=== PATIENT | female | born 1960 | race Caucasian/White ===

== ENCOUNTER 2018-05-17 05:48 | Inpatient (IN) | payer BC, MEDICARE ==
[2018-05-10 16:06] LABS: BASOPHILS % (AUTO) 0.5 % (0-1); EOSINOPHILS # (AUTO) 0.2 X10'3 (0-0.9); EOSINOPHILS % (AUTO) 1.7 % (0-6); LYMPHOCYTES # (AUTO) 3.6 X10'3 (1.1-4.8); LYMPHOCYTES % (AUTO) 37.4 % (21-51); MEAN CORPUSCULAR HEMOGLOBIN 30.1 PG (27.0-31.0); MEAN CORPUSCULAR HGB CONC 33.8 % (33.0-36.5); MEAN CORPUSCULAR VOLUME 89.1 FL (78-98); MEAN PLATELET VOLUME 8.2 FL (7.4-10.4); MONOCYTES # (AUTO) 0.6 X10'3 (0-0.9); MONOCYTES % (AUTO) 6.1 % (2-12); NEUTROPHILS # (AUTO) 5.2 X10'3 (1.8-7.7); NEUTROPHILS % (AUTO) 54.3 % (42-75); PRE OP HEMATOCRIT 40.3 % (35.0-45.0); PRE OP HEMOGLOBIN 13.6 g/dL (12.0-16.0); PRE OP PLATELET COUNT 267 X10'3 (140-440); RED BLOOD COUNT 4.52 X10'6 (4.20-5.60); RED CELL DISTRIBUTION WIDTH 13.8 % (11.5-14.5)
[2018-05-10 16:06] LABS: CLARITY,URINE CLEAR (Clear); COLOR,URINE YELLOW (Yellow); GLUCOSE, URINE NEGATIVE (Neg); KETONES,URINE TRACE mg/dl (Neg); LEUKOCYTE ESTERASE ,URINE NEGATIVE (Neg); NITRITES, URINE NEGATIVE (Neg); OCCULT BLOOD,URINE NEGATIVE (Neg); PH,URINE 5.5 (4.8-8.0); PROTEIN,URINE NEGATIVE (Neg); UROBILINOGEN,URINE 0.2 E.U/dL (0.2-1.0)
[2018-05-10 16:11] LABS: UA COLLECTION TYPE CLN CATCH MIDSTREAM
[2018-05-10 16:14] LABS: PRE OP PROTIME 10.2 SECONDS (9.0-12.0)
[2018-05-10 16:15] LABS: HEMOGLOBIN A1C 6.2 % (4.5-6.2)
[2018-05-10 16:20] LABS: ALBUMIN/GLOBULIN RATIO 1.1 (1.1-1.5); ALKALINE PHOSPHATASE 126 IU/L (46-116); BLOOD UREA NITROGEN 20 MG/DL (7-18); BUN/CREATININE RATIO 14.8 (6.6-38.0); CALCIUM 9.6 MG/DL (8.5-10.1); CHLORIDE 102 MMOL/L (99-107); CREATININE 1.35 MG/DL (0.40-0.90); PRE OP ALT 37 U/L (30-65); PRE OP ANION GAP 13 (8-16); PRE OP AST 22 U/L (10-37); PRE OP BILIRUB, TOTAL 0.3 MG/DL (0.0-1.0); PRE OP GLUCOSE 136 MG/DL (70-104); PRE OP POTASSIUM 4.1 MMOL/L (3.4-5.1); PRE OP SODIUM 138 MMOL/L (135-145); TOTAL CARBON DIOXIDE 23.2 MMOL/L (24-32); TOTAL PROTEIN 7.8 G/DL (6.4-8.2); eGFR 40 ML/MIN
[~2018-05-17] VITALS: Ht 162.6 cm; Wt 108.3 kg
[2018-05-17] VITALS (24 sets, daily range): BP systolic 96–134; BP diastolic 49–82
[~2018-05-17 05:48] MED LIST: ALPR-624 PO; BUPR300T54 PO; ERGO500014 PO; ESZO3TAB32 PO; FURO-150 PO; GLIM4TAB79 PO; HYDR-565 PO; LISI2.5T89 PO; METF500T PO; NAPR-56 PO; SITA100T11 PO; ZOL50T PO; [UNRECOGNIZED DRUG - CODE] PO; acetaminophen 325mg tablet PO ONE; celeCOXIB 100mg capsule PO ONE; clindamycin-Cleocin 900mg/D5W 50 ML IV ONE; famotidine 20mg tablet PO ONE; gabapentin 300mg capsule PO ONE; metoclopramide 5 mg/ml inj IV ONE; oxyCODONE SR 10mg (sust. release) tab PO ONE; ringers solution, lacted 1,000 ML IV SCH; vancomycin inj 1,500 MG in normal saline 300ml IV soln IV ONE
[2018-05-17] MEDS ORDERED: epiNEPHrine 1 mg/ml inj ONE (07:59)
[2018-05-17] MEDS ORDERED: vancomycin 1,000mg inj ONE (07:59)
[2018-05-17] MEDS ORDERED: ketorolac trometh. 30mg/ml inj. ONE (07:59)
[2018-05-17] MEDS ORDERED: cloNIDine hcl/PF 100mcg/ml inj ONE (07:59)
[2018-05-17] MEDS ORDERED: ROPIVAcaine 0.5% (5mg/ml) 30ml vial ONE (08:00)
[2018-05-17] MEDS ORDERED: tranexamic acid inj. 1,000 MG in normal saline 100ml IV soln 90 ML IV ONE (08:45)
[2018-05-17] MEDS ORDERED: fentaNYL/PF 50MCG/1 ML 2ML syringe ONE (08:56)
[2018-05-17] MEDS ORDERED: MIDAZolam 5mg/5ml vial ONE (08:56)
[2018-05-17] MEDS ORDERED: morphine 10mg/ml inj. ONE (08:57)
[2018-05-17] MEDS ORDERED: morphine sulfate /PF 0.5 MG/ML 10mL ampul ONE (08:58)
[2018-05-17] MEDS ORDERED: tetracaine 1% (10mg/ml) pres. free inj. ONE (08:58)
[2018-05-17] MEDS ORDERED: propofol inj 20 ML IV ONE (09:19)
[2018-05-17] MEDS ORDERED: LIDOcaine 1%/PF 5ML 10 MG/ML VIAL ONE (09:19)
[2018-05-17] MEDS ORDERED: diphenhydrAMINE 50 mg/ml inj ONE (09:20)
[2018-05-17] MEDS ORDERED: naloxone 2mg/2ml inj 2 MG in normal saline 500ml IV soln 500 ML IV PRN (10:08)
[2018-05-17] MEDS ORDERED: ringers solution, lacted 1,000 ML IV SCH (10:08)
[2018-05-17] MEDS ORDERED: diphenhydrAMINE 50 mg/ml inj IV PRN (10:10)
[2018-05-17] MEDS ORDERED: meperidine/PF 25mg/ml syringe IV PRN ×3 (10:10)
[2018-05-17] MEDS ORDERED: ondansetron/PF 4mg/2ml inj IV PRN ×3 (10:10→10:45)
[2018-05-17] MEDS ORDERED: morphine 4 MG/ML inj SYRINge IV PRN ×2 (10:10)
[2018-05-17] MEDS ORDERED: proCHLORperazine 10 MG/2 ml inj IV PRN (10:10)
[2018-05-17] MEDS ORDERED: MESSAGE TO PHARMACY PO ONE (10:45)
[2018-05-17] MEDS ORDERED: dextrose 50%-water 50ml dispensing syringe IV PRN ×2 (10:45)
[2018-05-17] MEDS ORDERED: diphenhydrAMINE 25mg capsule PO PRN ×2 (10:45)
[2018-05-17] MEDS ORDERED: acetaminophen 325mg tablet PO PRN (10:45)
[2018-05-17] MEDS ORDERED: zolpidem 5mg tablet PO PRN (10:45)
[2018-05-17] MEDS ORDERED: ALPRAZolam 0.5mg tablet PO PRN (10:45)
[2018-05-17] MEDS ORDERED: dextrose ORAL solution 15 GM/59 ML bottle PO PRN ×2 (10:45)
[2018-05-17] MEDS ORDERED: bisacodyl 10mg suppository rectal RC PRN (10:45)
[2018-05-17] MEDS ORDERED: furosemide 20MG tablet PO PRN (10:45)
[2018-05-17] MEDS ORDERED: glucagon, human recombinant 1mg kit SUBCUT PRN (10:45)
[2018-05-17] MEDS ORDERED: magnesium hydroxide 30ml (MOM) UD suspension PO PRN (10:45)
[2018-05-17] MEDS ORDERED: HYDROmorphone inj. 0.5 MG/0.5 ML DISP.SYRIN IV PRN ×2 (10:45)
[2018-05-17] MEDS ORDERED: HYDROmorphone 1 mg/ml syringe IV PRN (13:08)
[2018-05-17] MEDS: gabapentin 300mg capsule PO SCH ×2 (13:40→20:05)
[2018-05-17] MEDS: acetaminophen 325mg tablet PO SCH ×2 (13:41→19:59)
[2018-05-17] MEDS: potassium cl 20mEq in 1/2 NS 1,000 ML IV SCH ×2 (13:42→19:59)
[2018-05-17] MEDS: clindamycin-Cleocin 900mg/D5W 50 ML IV SCH (17:18)
[2018-05-17] MEDS: oxyCODONE IR 5mg (immed. release) tablet PO PRN ×2 (17:23→21:22)
[2018-05-17] MEDS: ascorbic acid 500mg tablet PO SCH (19:59)
[2018-05-17] MEDS: sennosides 8.6mg tablet PO SCH (20:05)
[2018-05-17] MEDS: insulin glargine (Lantus) pen - multi-dose SQ SCH (21:00)
[2018-05-18] MEDS: clindamycin-Cleocin 900mg/D5W 50 ML IV SCH ×2 (01:12→08:43)
[2018-05-18] MEDS: acetaminophen 325mg tablet PO SCH ×4 (01:13→20:01)
[2018-05-18] MEDS: oxyCODONE IR 5mg (immed. release) tablet PO PRN ×5 (01:13→18:58)
[2018-05-18 02:00] VITALS: BP 103/63
[2018-05-18] MEDS: potassium cl 20mEq in 1/2 NS 1,000 ML IV SCH ×3 (03:36→17:50)
[2018-05-18 05:00] VITALS: BP 103/54
[2018-05-18 06:51] LABS: ANION GAP 9 (8-16); CHLORIDE 105 MMOL/L (99-107); POTASSIUM 3.8 MMOL/L (3.5-5.1); SODIUM 139 MMOL/L (135-145); TOTAL CARBON DIOXIDE 25.1 MMOL/L (24-32)
[2018-05-18 07:31] LABS: BASOPHILS % (AUTO) 0.5 % (0-1); EOSINOPHILS % (AUTO) 2.1 % (0-6); HEMATOCRIT 31.8 % (35.0-45.0); HEMOGLOBIN 10.8 g/dl (12.0-16.0); LYMPHOCYTES % (AUTO) 31.4 % (21-51); MEAN CORPUSCULAR HEMOGLOBIN 30.2 PG (27.0-31.0); MEAN CORPUSCULAR HGB CONC 33.9 % (33.0-36.5); MEAN CORPUSCULAR VOLUME 88.8 FL (78-98); MONOCYTES % (AUTO) 7.4 % (2-12); NEUTROPHILS % (AUTO) 58.6 % (42-75); PLATELET COUNT 157 X10'3 (140-440); RED BLOOD COUNT 3.58 X10'6 (4.20-5.60); RED CELL DISTRIBUTION WIDTH 13.6 % (11.5-14.5); WHITE BLOOD COUNT 7.6 X10'3 (4.5-11.0)
[2018-05-18 07:32] LABS: EOSINOPHILS # (AUTO) 0.2 X10'3 (0-0.9); LYMPHOCYTES # (AUTO) 2.4 X10'3 (1.1-4.8); MONOCYTES # (AUTO) 0.6 X10'3 (0-0.9); NEUTROPHILS # (AUTO) 4.5 X10'3 (1.8-7.7)
[2018-05-18] MEDS ORDERED: VITAMIN A 10000 UNIT PO SCH (08:00)
[2018-05-18] MEDS: gabapentin 300mg capsule PO SCH ×3 (08:43→21:11)
[2018-05-18] MEDS: multivitamins, therapeutics tablet PO SCH (08:44)
[2018-05-18] MEDS: ascorbic acid 500mg tablet PO SCH ×2 (08:45→20:01)
[2018-05-18] MEDS: buPROPion SR 150mg tablet PO SCH ×2 (08:45→20:01)
[2018-05-18] MEDS: sertraline 50mg tablet PO SCH (08:46)
[2018-05-18] MEDS: aspirin 325mg tablet PO SCH (08:47)
[2018-05-18] MEDS: lisinopril 2.5mg tablet PO SCH (08:53)
[2018-05-18 10:00] VITALS: BP 112/64
[2018-05-18 18:00] VITALS: BP 97/46
[2018-05-18 18:36] VITALS: BP 122/62
[2018-05-18] MEDS: sennosides 8.6mg tablet PO SCH (21:11)
[2018-05-18] MEDS: insulin glargine (Lantus) pen - multi-dose SQ SCH (21:18)
[2018-05-18 22:00] VITALS: BP 96/55
[2018-05-19] MEDS: oxyCODONE IR 5mg (immed. release) tablet PO PRN ×6 (01:34→22:50)
[2018-05-19] MEDS: acetaminophen 325mg tablet PO SCH ×2 (01:36→07:35)
[2018-05-19] MEDS: potassium cl 20mEq in 1/2 NS 1,000 ML IV SCH (03:28)
[2018-05-19 05:20] LABS: BASOPHILS % (AUTO) 0.6 % (0-1); EOSINOPHILS # (AUTO) 0.1 X10'3 (0-0.9); EOSINOPHILS % (AUTO) 1.5 % (0-6); HEMATOCRIT 31.3 % (35.0-45.0); HEMOGLOBIN 10.6 g/dl (12.0-16.0); LYMPHOCYTES # (AUTO) 2.1 X10'3 (1.1-4.8); LYMPHOCYTES % (AUTO) 23.5 % (21-51); MEAN CORPUSCULAR HGB CONC 33.9 % (33.0-36.5); MEAN CORPUSCULAR VOLUME 88.5 FL (78-98); MEAN PLATELET VOLUME 8.1 FL (7.4-10.4); MONOCYTES # (AUTO) 0.8 X10'3 (0-0.9); MONOCYTES % (AUTO) 8.7 % (2-12); NEUTROPHILS # (AUTO) 5.7 X10'3 (1.8-7.7); NEUTROPHILS % (AUTO) 65.7 % (42-75); PLATELET COUNT 163 X10'3 (140-440); RED BLOOD COUNT 3.53 X10'6 (4.20-5.60); RED CELL DISTRIBUTION WIDTH 13.8 % (11.5-14.5); WHITE BLOOD COUNT 8.7 X10'3 (4.5-11.0)
[2018-05-19 06:00] VITALS: BP 94/61
[2018-05-19] MEDS: lisinopril 2.5mg tablet PO SCH (07:28)
[2018-05-19] MEDS: ascorbic acid 500mg tablet PO SCH ×2 (07:34→20:02)
[2018-05-19] MEDS: gabapentin 300mg capsule PO SCH ×3 (07:34→20:02)
[2018-05-19] MEDS: multivitamins, therapeutics tablet PO SCH (07:34)
[2018-05-19] MEDS: sertraline 50mg tablet PO SCH (07:35)
[2018-05-19] MEDS: buPROPion SR 150mg tablet PO SCH ×2 (07:35→20:02)
[2018-05-19] MEDS: aspirin 325mg tablet PO SCH (07:35)
[2018-05-19] MEDS: insulin Lispro (HumaLOG) vial - multi-dose SQ SCH ×3 (08:32→19:25)
[2018-05-19 10:00] VITALS: BP 101/59
[2018-05-19 16:25] VITALS: BP 106/60
[2018-05-19 18:00] VITALS: BP 114/67
[2018-05-19 18:48] LABS: CLARITY,URINE CLEAR (Clear); COLOR,URINE YELLOW (Yellow); GLUCOSE, URINE NEGATIVE (Neg); KETONES,URINE NEGATIVE (Neg); LEUKOCYTE ESTERASE ,URINE NEGATIVE (Neg); NITRITES, URINE NEGATIVE (Neg); OCCULT BLOOD,URINE NEGATIVE (Neg); PROTEIN,URINE NEGATIVE (Neg); UROBILINOGEN,URINE 0.2 E.U/dL (0.2-1.0)
[2018-05-19 18:53] LABS: UA COLLECTION TYPE NON-SPECIFIED
[2018-05-19] MEDS: sennosides 8.6mg tablet PO SCH (20:02)
[2018-05-19] MEDS: HYDROmorphone 1 mg/ml syringe IV PRN (20:44)
[2018-05-19] MEDS: insulin glargine (Lantus) pen - multi-dose SQ SCH (20:58)
[2018-05-19 21:00] VITALS: BP 109/69
[2018-05-20] MEDS: oxyCODONE IR 5mg (immed. release) tablet PO PRN ×3 (02:58→12:15)
[2018-05-20] MEDS: HYDROmorphone 1 mg/ml syringe IV PRN ×2 (05:01→14:13)
[2018-05-20 05:55] LABS: BASOPHILS % (AUTO) 0.4 % (0-1); EOSINOPHILS # (AUTO) 0.2 X10'3 (0-0.9); HEMATOCRIT 31.4 % (35.0-45.0); HEMOGLOBIN 10.6 g/dl (12.0-16.0); LYMPHOCYTES # (AUTO) 2.6 X10'3 (1.1-4.8); LYMPHOCYTES % (AUTO) 25.8 % (21-51); MEAN CORPUSCULAR HEMOGLOBIN 30.1 PG (27.0-31.0); MEAN CORPUSCULAR HGB CONC 33.9 % (33.0-36.5); MEAN CORPUSCULAR VOLUME 88.7 FL (78-98); MEAN PLATELET VOLUME 8.3 FL (7.4-10.4); MONOCYTES # (AUTO) 0.7 X10'3 (0-0.9); MONOCYTES % (AUTO) 7.5 % (2-12); NEUTROPHILS # (AUTO) 6.4 X10'3 (1.8-7.7); NEUTROPHILS % (AUTO) 64.3 % (42-75); PLATELET COUNT 179 X10'3 (140-440); RED BLOOD COUNT 3.54 X10'6 (4.20-5.60); RED CELL DISTRIBUTION WIDTH 13.5 % (11.5-14.5); WHITE BLOOD COUNT 9.9 X10'3 (4.5-11.0)
[2018-05-20 06:00] VITALS: BP 115/62
[2018-05-20] MEDS: multivitamins, therapeutics tablet PO SCH (07:36)
[2018-05-20] MEDS: lisinopril 2.5mg tablet PO SCH (07:36)
[2018-05-20] MEDS: gabapentin 300mg capsule PO SCH ×2 (07:36→12:15)
[2018-05-20] MEDS: aspirin 325mg tablet PO SCH (07:36)
[2018-05-20] MEDS: sertraline 50mg tablet PO SCH (07:37)
[2018-05-20] MEDS: ascorbic acid 500mg tablet PO SCH (07:37)
[2018-05-20] MEDS: buPROPion SR 150mg tablet PO SCH (07:37)
[2018-05-20] MEDS: insulin Lispro (HumaLOG) vial - multi-dose SQ SCH ×2 (08:15→14:40)
[2018-05-20 10:00] VITALS: BP 95/63
[2018-05-20] MEDS ORDERED: ASPI-1 PO (12:33)
== END 2018-05-20 15:00 | disposition home or self-care (01) | DRG 470 ==
LOC: PAS IN 05:48 → EDSTATUS 09:30 → ORTHO 4S 12:55
PROVIDERS: ADMIT Orthopaedic Surgery; ATTEND Orthopaedic Surgery
PROC: 0SR906Z Replacement of Right Hip Joint with Oxidized Zirconium on Polyethylene Synthetic Substitute, Open Approach (ICD-10-PCS; principal; 2018-05-17 08:49)
DX: M16.11 Unilateral primary osteoarthritis, right hip (principal); D62 Acute posthemorrhagic anemia; Z68.41 Body mass index [BMI] 40.0-44.9, adult; E11.9 Type 2 diabetes mellitus without complications; G47.30 Sleep apnea, unspecified; I10 Essential (primary) hypertension; I25.10 Atherosclerotic heart disease of native coronary artery without angina pectoris; I48.91 Unspecified atrial fibrillation; F43.10 Post-traumatic stress disorder, unspecified; F31.9 Bipolar disorder, unspecified; F41.9 Anxiety disorder, unspecified; Z79.82 Long term (current) use of aspirin; Z79.899 Other long term (current) drug therapy; Z88.0 Allergy status to penicillin; Z88.6 Allergy status to analgesic agent; Z91.041 Radiographic dye allergy status; Z88.1 Allergy status to other antibiotic agents; Z79.84 Long term (current) use of oral hypoglycemic drugs
CPT/HCPCS: 36415; 71046; 72170; 80051; 80053; 81003; 82948; 83036; 85025; 85610; 85730; 86885; 86900; 86901; 87070; 97110; 97116; 97162; 97530; A4615; A7000; C1758; C1776; J0171; J0735; J1170; J1200; J1815; J1885; J2001; J2250; J2270; J2274; J2704; J2765; J2795; J3010; J3370; J3490; J7030; J7120